=== PATIENT | female | born 2000 | race Caucasian/White ===

== ENCOUNTER 2021-07-05 12:10 | Emergency (ER) | payer BC ==
[~2021-07-05] VITALS: Ht 160 cm; Wt 59.1 kg
[2021-07-05] MEDS ORDERED: LIDOcaine Viscous 15ml cup MM STA (13:43)
[2021-07-05 14:14] VITALS: BP 109/65
== END 2021-07-05 14:15 | disposition home or self-care (01) ==
LOC: ER 12:12
DX: J02.9 Acute pharyngitis, unspecified (principal); H92.02 Otalgia, left ear; M54.2 Cervicalgia
CPT/HCPCS: 99283